=== PATIENT | female | born 1965 | race Caucasian/White ===

== ENCOUNTER 2017-03-10 19:41 | Emergency (ER) | payer OTHER ==
[2017-03-10] MEDS: IPRATROPIUM (NEB) 0.5 MG/2.5 ML AMP HHN (22:38)
[2017-03-10] MEDS: ALBUTEROL 0.083% (NEB) 2.5 MG/3 ML AMP HHN (22:38)
[2017-03-10 22:52] LABS: ADD MAN DIFF? NO
[2017-03-10 22:55] LABS: WHITE BLOOD COUNT 11.2 10^3/ul (4.8-10.8)
[2017-03-10 22:55] LABS: BASOPHILS % 0.1 % (0.0-2.0); EOSINOPHILS # 0.6 10^3/ul (0.0-0.5); HEMATOCRIT 37.2 % (37.0-47.0); HEMOGLOBIN 12.4 g/dl (12.0-16.0); LYMPHOCYTES # 3.1 10^3/ul (0.8-2.9); LYMPHOCYTES % 27.2 % (15.0-51.0); MEAN CORPUSCULAR HEMOGLOBIN 30.2 pg (29.0-33.0); MEAN CORPUSCULAR HGB CONC 33.3 g/dl (32.0-37.0); MEAN CORPUSCULAR VOLUME 90.7 fl (82.0-101.0); MEAN PLATELET VOLUME 9.8 fl (7.4-10.4); MONOCYTES % 8.8 % (0.0-11.0); NEUTROPHIL # 6.6 10^3/ul (1.6-7.5); NEUTROPHILS % 58.5 % (39.0-77.0); PLATELET COUNT 348 10^3/UL (140-415); RED CELL DISTRIBUTION WIDTH 13.3 % (11.5-14.5)
[2017-03-10 23:16] LABS: ALANINE AMINOTRANSFERASE 44 IU/L (13-69); ALBUMIN 3.9 g/dl (3.3-4.9); ALKALINE PHOSPHATASE 99 IU/L (42-121); ANION GAP 15 (8-16); ASPARTATE AMINO TRANSFERASE 50 IU/L (15-46); BILIRUBIN,INDIRECT 0.3 mg/dl (0-1.1); BILIRUBIN,TOTAL 0.3 mg/dl (0.2-1.3); BLOOD UREA NITROGEN 21 mg/dl (7-20); CALCIUM 8.9 mg/dl (8.4-10.2); CARBON DIOXIDE 27 mmol/L (21-31); CHLORIDE 103 mmol/L (97-110); CREATININE 1.18 mg/dl (0.44-1.00); GLUCOSE 120 mg/dl (70-220); POTASSIUM 3.9 mmol/L (3.5-5.1); SODIUM 141 mmol/L (135-144); TOTAL PROTEIN 6.9 g/dl (6.1-8.1)
[2017-03-10] MEDS: OLANZAPINE (ODT) 5 MG TAB ODT (23:17)
[2017-03-10 23:18] LABS: ACETAMINOPHEN < 10.0 ug/ml (10.0-30.0); SALICYLATE < 1.0 mg/dl (5.0-30.0)
[2017-03-10 23:28] LABS: ETHANOL < 10.0 mg/dl
[2017-03-11] MEDS: ONDANSETRON (ODT) 4 MG TAB ODT (01:05)
[2017-03-11] MEDS: IPRATROPIUM (NEB) 0.5 MG/2.5 ML AMP HHN (01:09)
[2017-03-11] MEDS: LEVALBUTEROL (NEB) 1.25 MG/0.5 ML AMP HHN (01:09)
[2017-03-11 02:38] LABS: ADD UMIC YES; UR ASCORBIC ACID NEGATIVE (NEGATIVE); UR BILIRUBIN (Dip) NEGATIVE (NEGATIVE); UR BLOOD (Dip) 2+ mg/dL (NEGATIVE); UR CLARITY CLEAR (CLEAR); UR COLOR STRAW (YELLOW); UR GLUCOSE (Dip) NEGATIVE (NEGATIVE); UR KETONES (Dip) NEGATIVE (NEGATIVE); UR LEUKOCYTE ESTERASE (Dip) NEGATIVE Leu/ul (NEGATIVE); UR NITRITE (Dip) NEGATIVE (NEGATIVE); UR RBC 0 /HPF (0-5); UR SPECIFIC GRAVITY (Dip) 1.004 (1.003-1.030); UR SQUAMOUS EPITHELIAL CELL FEW /HPF (FEW); UR TOTAL PROTEIN (Dip) NEGATIVE (NEGATIVE); UR UROBILINOGEN (Dip) NEGATIVE (NEGATIVE); UR WBC 1 /HPF (0-5)
[2017-03-11 02:52] LABS: CANNABINOIDS Negative (NEGATIVE)
[2017-03-11 02:59] LABS: BARBITURATES Negative (NEGATIVE); BENZODIAZEPINES Negative (NEGATIVE); COCAINE Negative (NEGATIVE); OPIATES Negative (NEGATIVE)
[2017-03-11 03:03] LABS: AMPHETAMINE/METHAMPHETAMINE POSITIVE (NEGATIVE)
[2017-03-11] MEDS ORDERED: ARIPIPRAZOLE 5 MG TAB PO (09:00)
== END 2017-03-11 06:05 ==
LOC: E/R 03-11 06:05
DX: F29 Unspecified psychosis not due to a substance or known physiological condition (principal); F79 Unspecified intellectual disabilities; R05 Cough; Z79.82 Long term (current) use of aspirin
CPT/HCPCS: 36415; 71045; 80053; 80306; 80307; 81001; 85025; 87400; 93005; 94640; 94664; 99285-25

== ENCOUNTER 2017-12-19 06:22 | Day surgery (SDC) | payer OTHER ==
[2017-12-19] MEDS: TROPICAMIDE 1% 3 ML OPH OPER (07:18)
[2017-12-19] MEDS: SOD CHLORIDE 0.9% 1,000 ML IV (07:18)
[2017-12-19] MEDS: CYCLOPENTOLATE/PHENYLEPH 2 ML OPH OPER (07:19)
[2017-12-19] MEDS: MOXIFLOXACIN 0.5% 3 ML OPH OPER (07:19)
[2017-12-19] MEDS: DICLOFENAC 0.1% 2.5 ML OPH OPER (07:45)
[2017-12-19] MEDS: CARBACHOL 0.01% 1.5 ML OPH INJ (08:47)
[2017-12-19] MEDS: CEFAZOLIN 1 GM INJ (08:47)
[2017-12-19] MEDS: DEXAMETHASONE 4 MG/ML 1 ML INJ (08:47)
[2017-12-19] MEDS ORDERED: PROPOFOL 20 ML ×2 (08:56→09:33)
[2017-12-19] MEDS ORDERED: MIDAZOLAM 1 MG/ML 2 ML INJ (08:56)
[2017-12-19] MEDS ORDERED: FENTAnyl 50 MCG/ML VIAL IV (09:00)
[2017-12-19] MEDS ORDERED: LABETALOL HCL 20MG INJ IV (09:00)
[2017-12-19] MEDS ORDERED: ONDANSETRON 4 MG INJ IV (09:00)
[2017-12-19] MEDS ORDERED: hydrALAzine 20 MG INJ IV (09:00)
[2017-12-19] MEDS ORDERED: HYDROmorphONE 1 MG/5 ML IV SYRINGE IV (09:00)
[2017-12-19] MEDS ORDERED: ONDANSETRON 4 MG INJ (09:06)
[2017-12-19] MEDS ORDERED: METOCLOPRAMIDE 10 MG INJ (09:06)
[2017-12-19] MEDS ORDERED: FENTAnyl 50 MCG/ML VIAL (09:12)
[2017-12-19] MEDS ORDERED: NA HYALURONATE/CHONDROITIN 0.5 ML SYG (09:47)
[2017-12-19] MEDS ORDERED: LIDOCAINE 4% (MPF) 5 ML INJ (09:47)
[2017-12-19] MEDS: FENTAnyl 50 MCG/ML VIAL IV (09:54)
== END 2017-12-19 10:45 | disposition home or self-care (01) ==
LOC: SDS 06:22
DX: H25.041 Posterior subcapsular polar age-related cataract, right eye (principal); I25.2 Old myocardial infarction; J45.909 Unspecified asthma, uncomplicated; I10 Essential (primary) hypertension
CPT/HCPCS: 66984; 82962

== ENCOUNTER 2018-01-30 12:08 | Emergency (ER) | payer OTHER | END 2018-01-30 13:50 | disposition home or self-care (01) | LOC: FTE 12:08 | DX: J06.9 Acute upper respiratory infection, unspecified (principal); J45.909 Unspecified asthma, uncomplicated; I10 Essential (primary) hypertension; F17.210 Nicotine dependence, cigarettes, uncomplicated; I25.2 Old myocardial infarction; Z79.82 Long term (current) use of aspirin; Z79.01 Long term (current) use of anticoagulants; Z98.61 Coronary angioplasty status | CPT/HCPCS: 99283; Z7502 ==

== ENCOUNTER 2018-05-07 13:45 | Emergency (ER) | payer OTHER ==
[2018-05-07] MEDS: IBUPROFEN 800 MG TAB PO (15:30)
== END 2018-05-07 15:45 | disposition home or self-care (01) ==
LOC: FTE 13:45
DX: L02.413 Cutaneous abscess of right upper limb (principal); J45.909 Unspecified asthma, uncomplicated; I10 Essential (primary) hypertension; I25.2 Old myocardial infarction; F17.210 Nicotine dependence, cigarettes, uncomplicated; Z79.01 Long term (current) use of anticoagulants; Z79.82 Long term (current) use of aspirin; Z98.61 Coronary angioplasty status
CPT/HCPCS: 99283; Z7502

== ENCOUNTER 2018-09-25 05:42 | Day surgery (SDC) | payer OTHER ==
[2018-09-25] MEDS: SOD CHLORIDE 0.9% 1,000 ML IV (06:22)
[2018-09-25] MEDS: MOXIFLOXACIN 0.5% 3 ML OPH OPER (06:23)
[2018-09-25] MEDS: TROPICAMIDE 1% 15 ML OPH OPER (06:23)
[2018-09-25] MEDS: CYCLOPENTOLATE/PHENYLEPH 2 ML OPH OPER (06:23)
[2018-09-25] MEDS: DICLOFENAC 0.1% 2.5 ML OPH OPER (06:24)
[2018-09-25] MEDS ORDERED: EPINEPHrine 1 MG INJ (06:48)
[2018-09-25] MEDS ORDERED: TRIMETHOBENZAMIDE 100 MG/ML VIAL IM (07:30)
[2018-09-25] MEDS ORDERED: EPHEDrine 25 MG/5 ML SYG IV (07:30)
[2018-09-25] MEDS ORDERED: HYDROmorphONE 1 MG/5 ML IV SYRINGE IV ×3 (07:30)
[2018-09-25] MEDS ORDERED: MIDAZOLAM 1 MG/ML 2 ML INJ IV (07:30)
[2018-09-25] MEDS ORDERED: FENTAnyl 50 MCG/ML VIAL IV ×2 (07:30)
[2018-09-25] MEDS ORDERED: OXYCODONE/ACETAMINOPHEN (5/325) TAB PO ×2 (07:30)
[2018-09-25] MEDS ORDERED: DESFLURANE 15 MIN (07:30)
[2018-09-25] MEDS ORDERED: DIPHENHYDRAMINE 50 MG INJ IV (07:30)
[2018-09-25] MEDS ORDERED: LABETALOL HCL 20MG INJ IV (07:30)
[2018-09-25] MEDS ORDERED: hydrALAzine 20 MG INJ IV (07:30)
[2018-09-25] MEDS ORDERED: MEPERIDINE 25 MG INJ IV (07:30)
[2018-09-25] MEDS ORDERED: NEOSTIGMINE 3 MG/3 ML SYRINGE (07:32)
[2018-09-25] MEDS ORDERED: PROPOFOL 20 ML (07:32)
[2018-09-25] MEDS ORDERED: CEFAZOLIN 1 GM INJ (07:32)
[2018-09-25] MEDS ORDERED: GLYCOPYRROLATE 0.4 MG INJ (07:32)
[2018-09-25] MEDS ORDERED: ROCURONIUM 50 MG INJ (07:32)
[2018-09-25] MEDS ORDERED: FENTAnyl 50 MCG/ML VIAL (07:33)
[2018-09-25] MEDS ORDERED: MIDAZOLAM 1 MG/ML 2 ML INJ (07:33)
[2018-09-25] MEDS ORDERED: DEXAMETHASONE 4 MG/ML 5 ML INJ (07:36)
[2018-09-25] MEDS ORDERED: ONDANSETRON 4 MG INJ (07:36)
[2018-09-25] MEDS ORDERED: SUGAMMADEX SODIUM 200 MG/2 ML VIAL IV (08:02)
[2018-09-25] MEDS: GENTAMICIN 80 MG INJ (08:18)
[2018-09-25] MEDS: TETRACAINE 0.5% 4 ML OPH (08:18)
[2018-09-25] MEDS: CARBACHOL 0.01% 1.5 ML OPH INJ (08:18)
[2018-09-25] MEDS: NA HYALURONATE/CHONDROITIN 0.5 ML SYG (08:18)
[2018-09-25] MEDS: LIDOCAINE 4% (MPF) 5 ML INJ (08:18)
[2018-09-25] MEDS: CEFAZOLIN 1 GM INJ (08:18)
[2018-09-25] MEDS ORDERED: ALBUTEROL/IPRATROPIUM (NEB) 3 ML AMP (08:25)
[2018-09-25] MEDS: ALBUTEROL 0.083% (NEB) 2.5 MG/3 ML AMP HHN (08:37)
[2018-09-25] MEDS: IPRATROPIUM (NEB) 0.5 MG/2.5 ML AMP HHN (08:37)
[2018-09-25] MEDS: FENTAnyl 50 MCG/ML VIAL IV (08:48)
[2018-09-25] MEDS: ONDANSETRON 4 MG INJ IV (08:48)
[2018-09-25] MEDS: DEXAMETHASONE 4 MG/ML 1 ML INJ (09:01)
== END 2018-09-25 09:30 | disposition home or self-care (01) ==
LOC: SDS 05:42
DX: H25.12 Age-related nuclear cataract, left eye (principal); E11.9 Type 2 diabetes mellitus without complications; I10 Essential (primary) hypertension; J45.909 Unspecified asthma, uncomplicated
CPT/HCPCS: 66984; 82962; 94664